=== PATIENT | male | born 1980 | race Caucasian/White ===

== ENCOUNTER 2018-12-12 20:59 | Inpatient (IN) ==
[2018-12-12] MEDS ORDERED: SODIUM CHLORIDE 0.9% 1,000 ML IV STA (23:05)
[2018-12-12] MEDS ORDERED: ONDANSETRON 4 MG/2 ML VIAL IV STA (23:05)
[2018-12-12 23:19] LABS: Basophils # 0.2 10*3/uL (0.0-0.2); Basophils % 0.6 % (0.0-0.8); Eosinophils # 0.1 10*3/uL (0.0-0.87); Eosinophils % 0.5 % (0.00-10.9); Hematocrit 37.4 VOL% (42.0-52.0); Hemoglobin 11.9 GM/DL (14.0-18.0); Immature Granulocytes Absolute 0.25 #; Lymphocytes # 1.6 10*3/uL (1.4-4.0); Mean Corpuscular HGB Conc 31.8 GM/DL (32-36); Mean Corpuscular Hemoglobin 27 PG (27-34); Mean Corpuscular Volume 85.4 FL (87-102); Mean Platelet Volume 8.5 FL (9.6-12.0); Monocytes # 1.6 10*3/uL (0.11-0.8); Monocytes % 6.4 % (1.7-12.7); Neutrophils # 22.1 10*3/uL (1.4-7.4); Neutrophils % 85.5 % (38.7-73.9); Platelet Count 771 T/CUMM (130-400); Red Blood Count 4.38 MC/CUMM (3.8-5.5); Red Cell Distribution Width 13.1 % (9.3-17.3); White Blood Count 25.8 T/CUMM (4-12)
[2018-12-12] MEDS ORDERED: VANCOMYCIN INJ 1,000 MG in SODIUM CHLORIDE 0.9% 250 ML IV STA (23:48)
[2018-12-12] MEDS ORDERED: CEFEPIME 2,000 MG in SODIUM CHLORIDE 0.9% 100 ML IV STA (23:48)
[2018-12-12 23:49] LABS: Alanine Aminotransferase 79 U/L (16-61); Albumin 1.8 G/DL (3.4-5.0); Alkaline Phosphatase 426 U/L (45-117); Aspartate Amino Transferase 76 U/L (0-37); Bilirubin,Total < 0.39 MG/DL (0.2-1.0); Blood Urea Nitrogen 8 MG/DL (7-18); Calcium 8.7 MG/DL (8.5-10.1); Glucose 90 MG/DL (74-106); Osmolality,Calculated 252.2 MOS/KG (273-304); Sodium 127 MMOL/L (136-145); Total Protein 7.9 G/DL (6.4-8.3)
[2018-12-13] MEDS ORDERED: CEFEPIME 1,000 MG VIAL ONE (00:11)
[2018-12-13 00:16] LABS: Band Neutrophils 1 % (0-10); Lymphocytes 1 % (20-55); Segmented Neutrophils 94 % (50-85)
[2018-12-13] MEDS ORDERED: CEFEPIME 2,000 MG VIAL ONE (00:16)
[2018-12-13 00:18] LABS: Platelet Estimate Increased; Total Cells Counted 100
[2018-12-13] MEDS ORDERED: ONDANSETRON 4 MG/2 ML VIAL IV PRN (01:50)
[2018-12-13] MEDS: SODIUM CHLORIDE 0.9% 1,000 ML IV SCH ×2 (02:55→16:57)
[2018-12-13 03:12] LABS: Apearance,Urine CLEAR (Clear); Bilirubin,Urine Negative (Negative); Blood, Urine Negative (Negative); Glucose,Urine (UA) Negative (Negative); Ketones,Urine Negative (Negative); Mucus,Urine Occasional /LPF (Occasional); Nitrite,Urine Negative (Negative); Protein,Urine Negative; RBC,Urine 1 /HPF (0-4); Urine Color Yellow (Yellow); Urine Urobilinogen < 2.0 EU/DL (0.2-1.0); WBC,Urine 1 /HPF (0-6)
[2018-12-13] MEDS ORDERED: PIPERACILLIN/TAZOBACTAM 3,375 MG in SODIUM CHLORIDE 0.9% 100 ML IV SCH (04:00)
[2018-12-13] MEDS: ACETAMINOPHEN 325 MG TABLET PO PRN ×3 (04:15→20:44)
[2018-12-13 07:48] LABS: Basophils # 0.2 10*3/uL (0.0-0.2); Basophils % 0.6 % (0.0-0.8); Eosinophils # 0.1 10*3/uL (0.0-0.87); Eosinophils % 0.3 % (0.00-10.9); Hematocrit 34.3 VOL% (42.0-52.0); Hemoglobin 11.1 GM/DL (14.0-18.0); Immature Granulocytes % 1.1 %; Immature Granulocytes Absolute 0.28 #; Lymphocytes # 1.1 10*3/uL (1.4-4.0); Lymphocytes % 4.5 % (21.2-54.2); Mean Corpuscular HGB Conc 32.4 GM/DL (32-36); Mean Corpuscular Hemoglobin 28 PG (27-34); Mean Corpuscular Volume 86.4 FL (87-102); Mean Platelet Volume 8.7 FL (9.6-12.0); Neutrophils % 85.5 % (38.7-73.9); Platelet Count 639 T/CUMM (130-400); Red Blood Count 3.97 MC/CUMM (3.8-5.5); Red Cell Distribution Width 13.3 % (9.3-17.3); White Blood Count 24.5 T/CUMM (4-12)
[2018-12-13] MEDS: PANTOPRAZOLE 40 MG TABLET PO SCH (08:40)
[2018-12-13] MEDS: LEVOFLOXACIN INJ 750 MG in PREMIX 1 EACH IV SCH (08:40)
[2018-12-13 08:53] LABS: Band Neutrophils 3 % (0-10); Eosinophils 2 % (0-10); Hypochromasia 1+; Lymphocytes 4 % (20-55); Segmented Neutrophils 87 % (50-85); Total Cells Counted 100
[2018-12-13 08:54] LABS: Microcytosis 1+
[2018-12-13 09:06] LABS: HIV Antigen/Antibody Result Nonreactive (Nonreactive)
[2018-12-13] MEDS ORDERED: ALUMINUM/MAGNES/SIMETH MAX STR 30 ML UDCUP PO PRN (09:46)
[2018-12-13] MEDS ORDERED: cefTRIAXone 1,000 MG in SYRINGE 1 EACH IV SCH (10:00)
[2018-12-13] MEDS ORDERED: ALBUTEROL/IPRATROPIUM 3 ML NEB RESP TX SCH (13:00)
[2018-12-13] MEDS: ENOXAPARIN 40 MG/0.4 ML SYRINGE SUBCUT SCH (15:28)
[2018-12-14 05:24] LABS: Basophils # 0.1 10*3/uL (0.0-0.2); Basophils % 0.6 % (0.0-0.8); Eosinophils # 0.1 10*3/uL (0.0-0.87); Eosinophils % 0.6 % (0.00-10.9); Hematocrit 33.7 VOL% (42.0-52.0); Hemoglobin 10.7 GM/DL (14.0-18.0); Immature Granulocytes % 1.1 %; Immature Granulocytes Absolute 0.23 #; Lymphocytes # 1.1 10*3/uL (1.4-4.0); Mean Corpuscular HGB Conc 31.8 GM/DL (32-36); Mean Corpuscular Hemoglobin 28 PG (27-34); Mean Corpuscular Volume 86.9 FL (87-102); Mean Platelet Volume 8.8 FL (9.6-12.0); Monocytes # 1.5 10*3/uL (0.11-0.8); Monocytes % 6.7 % (1.7-12.7); Neutrophils # 18.6 10*3/uL (1.4-7.4); Platelet Count 703 T/CUMM (130-400); Red Blood Count 3.88 MC/CUMM (3.8-5.5); Red Cell Distribution Width 13.2 % (9.3-17.3); White Blood Count 21.6 T/CUMM (4-12)
[2018-12-14 05:53] LABS: Eosinophils 1 % (0-10); Lymphocytes 4 % (20-55); Metamyelocytes 1 %; Platelet Estimate Increased; Polychromasia Slight; Segmented Neutrophils 94 % (50-85); Total Cells Counted 100
[2018-12-14 07:26] LABS: Albumin 1.5 G/DL (3.4-5.0); Bilirubin,Total 1.2 MG/DL (0.2-1.0); Calcium 8.4 MG/DL (8.5-10.1); Osmolality,Calculated 261.5 MOS/KG (273-304); Potassium 3.7 MMOL/L (3.5-5.1); Total Protein 6.2 G/DL (6.4-8.3)
[2018-12-14] MEDS: LEVOFLOXACIN INJ 750 MG in PREMIX 1 EACH IV SCH (09:32)
[2018-12-14] MEDS: PANTOPRAZOLE 40 MG TABLET PO SCH (09:34)
[2018-12-14] MEDS: cefTRIAXone 2,000 MG in SYRINGE 1 EACH IV SCH (09:34)
[2018-12-14] MEDS: BUDESONIDE/FORMOTEROL 160-4.5 INHALER 6 GM INH SCH ×2 (10:29→21:04)
[2018-12-14] MEDS: ENOXAPARIN 40 MG/0.4 ML SYRINGE SUBCUT SCH (14:15)
[2018-12-14] MEDS: SODIUM CHLORIDE 0.9% 1,000 ML IV SCH (14:21)
[2018-12-14] MEDS: ACETAMINOPHEN 325 MG TABLET PO PRN (16:23)
[2018-12-14] MEDS: MAGNESIUM HYDROXIDE SUSP 30 ML UDCUP PO PRN (23:26)
[2018-12-15] MEDS: ACETAMINOPHEN 325 MG TABLET PO PRN ×2 (00:53→05:36)
[2018-12-15] MEDS: MAGNESIUM HYDROXIDE SUSP 30 ML UDCUP PO PRN (05:36)
[2018-12-15] MEDS: LEVOFLOXACIN INJ 750 MG in PREMIX 1 EACH IV SCH (10:05)
[2018-12-15] MEDS: cefTRIAXone 2,000 MG in SYRINGE 1 EACH IV SCH (10:06)
[2018-12-15] MEDS: BUDESONIDE/FORMOTEROL 160-4.5 INHALER 6 GM INH SCH ×2 (10:06→22:39)
[2018-12-15] MEDS: PANTOPRAZOLE 40 MG TABLET PO SCH (10:06)
[2018-12-15] MEDS: LACTOBACILLUS ACIDOPHILUS/BULGARICUS CAPLET PO SCH ×2 (12:32→22:39)
[2018-12-15] MEDS: ENOXAPARIN 40 MG/0.4 ML SYRINGE SUBCUT SCH (14:18)
[2018-12-15] MEDS: SODIUM CHLORIDE 0.9% 1,000 ML IV SCH ×2 (14:24→22:35)
[2018-12-16] MEDS: ACETAMINOPHEN 325 MG TABLET PO PRN ×3 (04:25→22:44)
[2018-12-16 06:03] LABS: Basophils # 0.1 10*3/uL (0.0-0.2); Basophils % 0.5 % (0.0-0.8); Eosinophils % 0.1 % (0.00-10.9); Hematocrit 31.5 VOL% (42.0-52.0); Immature Granulocytes % 0.9 %; Immature Granulocytes Absolute 0.22 #; Lymphocytes # 1.2 10*3/uL (1.4-4.0); Lymphocytes % 4.7 % (21.2-54.2); Mean Corpuscular HGB Conc 31.7 GM/DL (32-36); Mean Corpuscular Hemoglobin 27 PG (27-34); Mean Corpuscular Volume 85.1 FL (87-102); Mean Platelet Volume 9.3 FL (9.6-12.0); Monocytes # 1.6 10*3/uL (0.11-0.8); Monocytes % 6.6 % (1.7-12.7); Neutrophils # 21.3 10*3/uL (1.4-7.4); Neutrophils % 87.2 % (38.7-73.9); Platelet Count 687 T/CUMM (130-400); Red Cell Distribution Width 13.4 % (9.3-17.3); White Blood Count 24.4 T/CUMM (4-12)
[2018-12-16 06:34] LABS: Band Neutrophils 4 % (0-10); Hypochromasia 1+; Lymphocytes 7 % (20-55); Microcytosis Slight; Segmented Neutrophils 81 % (50-85); Total Cells Counted 100
[2018-12-16 06:49] LABS: Calcium 8.4 MG/DL (8.5-10.1); Osmolality,Calculated 257.8 MOS/KG (273-304); Potassium 3.8 MMOL/L (3.5-5.1)
[2018-12-16] MEDS: PANTOPRAZOLE 40 MG TABLET PO SCH (09:07)
[2018-12-16] MEDS: LACTOBACILLUS ACIDOPHILUS/BULGARICUS CAPLET PO SCH ×2 (09:07→22:44)
[2018-12-16] MEDS: ENOXAPARIN 40 MG/0.4 ML SYRINGE SUBCUT SCH ×2 (09:07→09:10)
[2018-12-16] MEDS: LEVOFLOXACIN INJ 750 MG in PREMIX 1 EACH IV SCH (09:07)
[2018-12-16] MEDS: BUDESONIDE/FORMOTEROL 160-4.5 INHALER 6 GM INH SCH ×2 (09:07→22:44)
[2018-12-16] MEDS: cefTRIAXone 2,000 MG in SYRINGE 1 EACH IV SCH (09:15)
[2018-12-16] MEDS ORDERED: VANCOMYCIN INJ 1,250 MG in SODIUM CHLORIDE 0.9% 250 ML IV ONE (09:30)
[2018-12-16] MEDS: VANCOMYCIN INJ 1,000 MG in SODIUM CHLORIDE 0.9% 250 ML IV SCH (18:05)
[2018-12-16] MEDS: SODIUM CHLORIDE 0.9% 1,000 ML IV SCH (18:07)
[2018-12-17] MEDS ORDERED: guaiFENesin/CODEINE 5 ML LIQUID PO STA (00:19)
[2018-12-17] MEDS ORDERED: MORPHINE 4 MG/1 ML VIAL IV ONE (00:23)
[2018-12-17] MEDS: ALBUTEROL/IPRATROPIUM 3 ML NEB RESP TX PRN (01:00)
[2018-12-17] MEDS: VANCOMYCIN INJ 1,000 MG in SODIUM CHLORIDE 0.9% 250 ML IV SCH ×2 (01:55→10:33)
[2018-12-17 05:53] LABS: Basophils # 0.1 10*3/uL (0.0-0.2); Basophils % 0.5 % (0.0-0.8); Eosinophils # 0.1 10*3/uL (0.0-0.87); Eosinophils % 0.5 % (0.00-10.9); Hematocrit 30.4 VOL% (42.0-52.0); Hemoglobin 9.5 GM/DL (14.0-18.0); Immature Granulocytes Absolute 0.21 #; Lymphocytes # 1.2 10*3/uL (1.4-4.0); Lymphocytes % 5.7 % (21.2-54.2); Mean Corpuscular HGB Conc 31.3 GM/DL (32-36); Mean Corpuscular Hemoglobin 27 PG (27-34); Mean Corpuscular Volume 85.9 FL (87-102); Mean Platelet Volume 9.2 FL (9.6-12.0); Monocytes # 1.3 10*3/uL (0.11-0.8); Monocytes % 6.2 % (1.7-12.7); Neutrophils # 18.6 10*3/uL (1.4-7.4); Neutrophils % 86.1 % (38.7-73.9); Platelet Count 708 T/CUMM (130-400); Red Blood Count 3.54 MC/CUMM (3.8-5.5); Red Cell Distribution Width 13.3 % (9.3-17.3); White Blood Count 21.5 T/CUMM (4-12)
[2018-12-17 06:09] LABS: Calcium 7.9 MG/DL (8.5-10.1); Osmolality,Calculated 268.1 MOS/KG (273-304)
[2018-12-17 06:50] LABS: Band Neutrophils 5 % (0-10); Hypochromasia 1+; Lymphocytes 6 % (20-55); Platelet Estimate Increased; Segmented Neutrophils 85 % (50-85); Total Cells Counted 100
[2018-12-17 06:51] LABS: Microcytosis Slight
[2018-12-17] MEDS ORDERED: PROMETHAZINE 25 MG/1 ML VIAL IM ONE (07:00)
[2018-12-17] MEDS ORDERED: MEPERIDINE 50 MG/1 ML VIAL IM ONE (07:00)
[2018-12-17] MEDS ORDERED: GLYCOPYRROLATE 0.4 MG/2 ML VIAL IM ONE (07:00)
[2018-12-17] MEDS ORDERED: MIDAZOLAM 2 MG/2 ML VIAL ONE (07:18)
[2018-12-17] MEDS ORDERED: LIDOCAINE 1% 20 ML VIAL MISC INJ ONE (07:30)
[2018-12-17] MEDS ORDERED: LIDOCAINE 2% 20 ML VIAL RESP TX ONE (07:30)
[2018-12-17] MEDS ORDERED: MIDAZOLAM 2 MG/2 ML VIAL IV ONE (07:30)
[2018-12-17] MEDS ORDERED: LIDOCAINE 2% VISCOUS 100 ML BOTTLE SWISH/SPIT ONE (07:30)
[2018-12-17] MEDS: ENOXAPARIN 40 MG/0.4 ML SYRINGE SUBCUT SCH (08:40)
[2018-12-17] MEDS: cefTRIAXone 2,000 MG in SYRINGE 1 EACH IV SCH (08:40)
[2018-12-17] MEDS: ACETAMINOPHEN 325 MG TABLET PO PRN ×2 (10:13→15:09)
[2018-12-17] MEDS: LACTOBACILLUS ACIDOPHILUS/BULGARICUS CAPLET PO SCH ×2 (10:13→21:43)
[2018-12-17] MEDS: PANTOPRAZOLE 40 MG TABLET PO SCH (10:14)
[2018-12-17] MEDS: BUDESONIDE/FORMOTEROL 160-4.5 INHALER 6 GM INH SCH ×2 (10:14→21:44)
[2018-12-17] MEDS: DEXTROSE 5% IV SCH (14:55)
[2018-12-17] MEDS: AMPHOTERICIN B LIPOSOMAL IV SCH (14:55)
[2018-12-17] MEDS: SODIUM CHLORIDE 0.9% 1,000 ML IV SCH (19:40)
[2018-12-17] MEDS: VANCOMYCIN INJ 1,250 MG in SODIUM CHLORIDE 0.9% 250 ML IV SCH (21:44)
[2018-12-18] MEDS: ACETAMINOPHEN 325 MG TABLET PO PRN ×3 (01:35→21:08)
[2018-12-18 05:08] LABS: Basophils # 0.2 10*3/uL (0.0-0.2); Basophils % 0.7 % (0.0-0.8); Eosinophils # 0.7 10*3/uL (0.0-0.87); Eosinophils % 2.8 % (0.00-10.9); Hematocrit 32.2 VOL% (42.0-52.0); Immature Granulocytes % 1.8 %; Immature Granulocytes Absolute 0.43 #; Lymphocytes # 1.5 10*3/uL (1.4-4.0); Lymphocytes % 6.2 % (21.2-54.2); Mean Corpuscular HGB Conc 31.1 GM/DL (32-36); Mean Corpuscular Hemoglobin 27 PG (27-34); Mean Corpuscular Volume 87.3 FL (87-102); Mean Platelet Volume 8.8 FL (9.6-12.0); Monocytes # 1.2 10*3/uL (0.11-0.8); Monocytes % 5.2 % (1.7-12.7); Neutrophils # 19.5 10*3/uL (1.4-7.4); Neutrophils % 83.3 % (38.7-73.9); Platelet Count 678 T/CUMM (130-400); Red Blood Count 3.69 MC/CUMM (3.8-5.5); Red Cell Distribution Width 13.6 % (9.3-17.3); White Blood Count 23.4 T/CUMM (4-12)
[2018-12-18 05:26] LABS: Calcium 7.9 MG/DL (8.5-10.1); Potassium 4.1 MMOL/L (3.5-5.1)
[2018-12-18 05:35] LABS: Band Neutrophils 2 % (0-10); Eosinophils 3 % (0-10); Hypochromasia 1+; Lymphocytes 3 % (20-55); Microcytosis Slight; Ovalocytes Slight; Platelet Estimate Adequate; Segmented Neutrophils 86 % (50-85); Total Cells Counted 100
[2018-12-18] MEDS: VANCOMYCIN INJ 1,250 MG in SODIUM CHLORIDE 0.9% 250 ML IV SCH ×3 (06:20→21:00)
[2018-12-18] MEDS: ENOXAPARIN 40 MG/0.4 ML SYRINGE SUBCUT SCH ×2 (10:34→10:37)
[2018-12-18] MEDS: PANTOPRAZOLE 40 MG TABLET PO SCH (10:34)
[2018-12-18] MEDS: LACTOBACILLUS ACIDOPHILUS/BULGARICUS CAPLET PO SCH ×2 (10:34→21:00)
[2018-12-18] MEDS: BUDESONIDE/FORMOTEROL 160-4.5 INHALER 6 GM INH SCH ×2 (10:35→21:00)
[2018-12-18] MEDS: cefTRIAXone 2,000 MG in SYRINGE 1 EACH IV SCH (11:05)
[2018-12-18] MEDS ORDERED: ACETAMINOPHEN 500 MG TABLET PO ONE (11:30)
[2018-12-18] MEDS ORDERED: diphenhydrAMINE CAP 50 MG CAPSULE PO ONE (11:30)
[2018-12-18] MEDS: DEXTROSE 5% IV SCH (11:40)
[2018-12-18] MEDS: AMPHOTERICIN B LIPOSOMAL IV SCH (11:40)
[2018-12-18 15:31] LABS: TB2 Ag Minus Result 0 IU/mL
[2018-12-19] MEDS: SODIUM CHLORIDE 0.9% 1,000 ML IV SCH (00:50)
[2018-12-19 05:09] LABS: Basophils # 0.2 10*3/uL (0.0-0.2); Basophils % 0.7 % (0.0-0.8); Eosinophils # 0.5 10*3/uL (0.0-0.87); Eosinophils % 2.2 % (0.00-10.9); Hemoglobin 10.1 GM/DL (14.0-18.0); Immature Granulocytes % 2.2 %; Immature Granulocytes Absolute 0.51 #; Lymphocytes # 1.3 10*3/uL (1.4-4.0); Lymphocytes % 5.7 % (21.2-54.2); Mean Corpuscular HGB Conc 30.6 GM/DL (32-36); Mean Corpuscular Hemoglobin 27 PG (27-34); Mean Corpuscular Volume 87.1 FL (87-102); Monocytes # 1.5 10*3/uL (0.11-0.8); Monocytes % 6.5 % (1.7-12.7); Neutrophils # 19.1 10*3/uL (1.4-7.4); Neutrophils % 82.7 % (38.7-73.9); Platelet Count 724 T/CUMM (130-400); Red Blood Count 3.79 MC/CUMM (3.8-5.5); Red Cell Distribution Width 13.6 % (9.3-17.3); White Blood Count 23.1 T/CUMM (4-12)
[2018-12-19] MEDS: VANCOMYCIN INJ 1,250 MG in SODIUM CHLORIDE 0.9% 250 ML IV SCH ×4 (05:29→21:04)
[2018-12-19 05:36] LABS: Calcium 8.1 MG/DL (8.5-10.1); Osmolality,Calculated 272.8 MOS/KG (273-304); Potassium 3.7 MMOL/L (3.5-5.1)
[2018-12-19 05:39] LABS: Eosinophils 3 % (0-10); Hypochromasia Slight; Lymphocytes 6 % (20-55); Platelet Estimate Increased; Segmented Neutrophils 89 % (50-85); Total Cells Counted 100
[2018-12-19] MEDS ORDERED: diphenhydrAMINE CAP 50 MG CAPSULE PO ONE (08:30)
[2018-12-19] MEDS ORDERED: ACETAMINOPHEN 500 MG TABLET PO ONE (08:30)
[2018-12-19] MEDS: LACTOBACILLUS ACIDOPHILUS/BULGARICUS CAPLET PO SCH ×2 (09:02→21:03)
[2018-12-19] MEDS: BUDESONIDE/FORMOTEROL 160-4.5 INHALER 6 GM INH SCH ×2 (09:03→21:04)
[2018-12-19] MEDS: ENOXAPARIN 40 MG/0.4 ML SYRINGE SUBCUT SCH (09:03)
[2018-12-19] MEDS: PANTOPRAZOLE 40 MG TABLET PO SCH (09:03)
[2018-12-19] MEDS: DEXTROSE 5% IV SCH (10:06)
[2018-12-19] MEDS: AMPHOTERICIN B LIPOSOMAL IV SCH (10:06)
[2018-12-19] MEDS ORDERED: SODIUM CHLORIDE 0.9% 500 ML IV ONE (12:30)
[2018-12-19] MEDS: traZODone 50 MG TABLET PO PRN (21:03)
[2018-12-20] MEDS: VANCOMYCIN INJ 1,250 MG in SODIUM CHLORIDE 0.9% 250 ML IV SCH ×3 (02:36→14:32)
[2018-12-20 05:11] LABS: Basophils # 0.2 10*3/uL (0.0-0.2); Basophils % 0.8 % (0.0-0.8); Eosinophils # 0.5 10*3/uL (0.0-0.87); Eosinophils % 1.9 % (0.00-10.9); Hemoglobin 10.1 GM/DL (14.0-18.0); Immature Granulocytes % 2.6 %; Immature Granulocytes Absolute 0.63 #; Lymphocytes # 1.2 10*3/uL (1.4-4.0); Lymphocytes % 4.8 % (21.2-54.2); Mean Corpuscular HGB Conc 31.6 GM/DL (32-36); Mean Corpuscular Hemoglobin 27 PG (27-34); Mean Corpuscular Volume 86.7 FL (87-102); Mean Platelet Volume 8.8 FL (9.6-12.0); Monocytes # 1.9 10*3/uL (0.11-0.8); Monocytes % 7.7 % (1.7-12.7); Neutrophils # 20.1 10*3/uL (1.4-7.4); Neutrophils % 82.2 % (38.7-73.9); Platelet Count 749 T/CUMM (130-400); Red Blood Count 3.69 MC/CUMM (3.8-5.5); Red Cell Distribution Width 13.6 % (9.3-17.3); White Blood Count 24.5 T/CUMM (4-12)
[2018-12-20 05:32] LABS: Band Neutrophils 1 % (0-10); Eosinophils 3 % (0-10); Lymphocytes 3 % (20-55); Segmented Neutrophils 91 % (50-85); Total Cells Counted 100
[2018-12-20 05:33] LABS: Giant Platelets Few; Hypochromasia 1+; Microcytosis Slight; Platelet Estimate Adequate
[2018-12-20 06:58] LABS: Calcium 8.2 MG/DL (8.5-10.1); Potassium 3.6 MMOL/L (3.5-5.1)
[2018-12-20] MEDS ORDERED: ACETAMINOPHEN 500 MG TABLET PO ONE (08:30)
[2018-12-20] MEDS ORDERED: diphenhydrAMINE CAP 50 MG CAPSULE PO ONE (08:30)
[2018-12-20] MEDS: ENOXAPARIN 40 MG/0.4 ML SYRINGE SUBCUT SCH ×2 (09:44→09:50)
[2018-12-20] MEDS: AMPHOTERICIN B LIPOSOMAL IV SCH (09:45)
[2018-12-20] MEDS: DEXTROSE 5% IV SCH (09:45)
[2018-12-20] MEDS: PANTOPRAZOLE 40 MG TABLET PO SCH (09:45)
[2018-12-20] MEDS: LACTOBACILLUS ACIDOPHILUS/BULGARICUS CAPLET PO SCH ×2 (09:45→20:30)
[2018-12-20] MEDS: BUDESONIDE/FORMOTEROL 160-4.5 INHALER 6 GM INH SCH ×2 (09:45→20:30)
[2018-12-20] MEDS: SODIUM CHLORIDE 0.9% 1,000 ML IV SCH ×2 (09:50→15:49)
[2018-12-20] MEDS ORDERED: POTASSIUM CHLORIDE 20 MEQ TABLET PO ONE (10:00)
[2018-12-20] MEDS ORDERED: SODIUM CHLORIDE 0.9% 500 ML IV ONE (14:30)
[2018-12-20 15:17] LABS: Amorphous Crystals,Urine Occasional /HPF (Few); Apearance,Urine CLOUDY (Clear); Bacteria,Urine Occasional /HPF (Few); Bilirubin,Urine Negative (Negative); Blood, Urine Negative (Negative); Glucose,Urine (UA) Negative (Negative); Ketones,Urine Negative (Negative); Mucus,Urine Occasional /LPF (Occasional); Nitrite,Urine Negative (Negative); Protein,Urine Negative; RBC,Urine 1 /HPF (0-4); Urine Color Yellow (Yellow); Urine Specific Gravity 1.017 (1.001-1.035); Urine Urobilinogen < 2.0 EU/DL (0.2-1.0); WBC,Urine 1 /HPF (0-6)
[2018-12-20] MEDS: traZODone 50 MG TABLET PO PRN (20:33)
[2018-12-21 05:54] LABS: Basophils # 0.2 10*3/uL (0.0-0.2); Basophils % 0.7 % (0.0-0.8); Eosinophils # 0.3 10*3/uL (0.0-0.87); Eosinophils % 1.3 % (0.00-10.9); Hematocrit 31.4 VOL% (42.0-52.0); Hemoglobin 9.6 GM/DL (14.0-18.0); Immature Granulocytes % 3.5 %; Immature Granulocytes Absolute 0.75 #; Lymphocytes # 1.1 10*3/uL (1.4-4.0); Lymphocytes % 5.1 % (21.2-54.2); Mean Corpuscular HGB Conc 30.6 GM/DL (32-36); Mean Corpuscular Hemoglobin 27 PG (27-34); Mean Corpuscular Volume 86.7 FL (87-102); Mean Platelet Volume 8.7 FL (9.6-12.0); Monocytes # 1.8 10*3/uL (0.11-0.8); Monocytes % 8.4 % (1.7-12.7); Neutrophils # 17.3 10*3/uL (1.4-7.4); Platelet Count 806 T/CUMM (130-400); Red Blood Count 3.62 MC/CUMM (3.8-5.5); Red Cell Distribution Width 13.8 % (9.3-17.3); White Blood Count 21.4 T/CUMM (4-12)
[2018-12-21 06:12] LABS: Calcium 8.3 MG/DL (8.5-10.1); Osmolality,Calculated 271.1 MOS/KG (273-304)
[2018-12-21 06:24] LABS: Band Neutrophils 3 % (0-10); Eosinophils 1 % (0-10); Lymphocytes 2 % (20-55); Segmented Neutrophils 89 % (50-85); Total Cells Counted 100
[2018-12-21 06:25] LABS: Hypochromasia 1+; Microcytosis 1+
[2018-12-21] MEDS ORDERED: VANCOMYCIN INJ 1,250 MG in SODIUM CHLORIDE 0.9% 250 ML IV ONE (09:00)
[2018-12-21] MEDS: ALBUTEROL/IPRATROPIUM 3 ML NEB RESP TX PRN ×2 (09:03→14:47)
[2018-12-21] MEDS: BUDESONIDE/FORMOTEROL 160-4.5 INHALER 6 GM INH SCH ×2 (09:04→21:01)
[2018-12-21] MEDS: ENOXAPARIN 40 MG/0.4 ML SYRINGE SUBCUT SCH (09:08)
[2018-12-21] MEDS: LACTOBACILLUS ACIDOPHILUS/BULGARICUS CAPLET PO SCH ×2 (09:08→21:01)
[2018-12-21] MEDS: PANTOPRAZOLE 40 MG TABLET PO SCH (09:09)
[2018-12-21] MEDS: AMPHOTERICIN B LIPOSOMAL IV SCH (10:31)
[2018-12-21] MEDS: DEXTROSE 5% IV SCH (10:31)
[2018-12-21 12:37] LABS: Troponin I 0.023 NG/ML (0.00-0.045)
[2018-12-21] MEDS: SODIUM CHLORIDE 0.9% 1,000 ML IV SCH (13:49)
[2018-12-21] MEDS: traZODone 50 MG TABLET PO PRN (21:02)
[2018-12-22] MEDS: ACETAMINOPHEN 325 MG TABLET PO PRN (01:41)
[2018-12-22 06:26] LABS: Calcium 8.6 MG/DL (8.5-10.1); Osmolality,Calculated 266.2 MOS/KG (273-304); Potassium 4.4 MMOL/L (3.5-5.1)
[2018-12-22] MEDS: SODIUM CHLORIDE 0.9% 1,000 ML IV SCH (10:00)
[2018-12-22] MEDS: BUDESONIDE/FORMOTEROL 160-4.5 INHALER 6 GM INH SCH ×2 (10:01→21:41)
[2018-12-22] MEDS: PANTOPRAZOLE 40 MG TABLET PO SCH (10:01)
[2018-12-22] MEDS: DEXTROSE 5% IV SCH (10:01)
[2018-12-22] MEDS: AMPHOTERICIN B LIPOSOMAL IV SCH (10:01)
[2018-12-22] MEDS: LACTOBACILLUS ACIDOPHILUS/BULGARICUS CAPLET PO SCH ×2 (10:02→21:40)
[2018-12-22] MEDS: ENOXAPARIN 40 MG/0.4 ML SYRINGE SUBCUT SCH (10:03)
[2018-12-22] MEDS: VANCOMYCIN INJ 1,250 MG in SODIUM CHLORIDE 0.9% 250 ML IV SCH (12:23)
[2018-12-22] MEDS: traZODone 50 MG TABLET PO PRN (21:41)
[2018-12-23] MEDS: VANCOMYCIN INJ 1,250 MG in SODIUM CHLORIDE 0.9% 250 ML IV SCH (00:47)
[2018-12-23 05:24] LABS: Basophils # 0.2 10*3/uL (0.0-0.2); Basophils % 0.7 % (0.0-0.8); Eosinophils # 0.4 10*3/uL (0.0-0.87); Eosinophils % 1.6 % (0.00-10.9); Hematocrit 27.8 VOL% (42.0-52.0); Hemoglobin 8.4 GM/DL (14.0-18.0); Immature Granulocytes % 4.3 %; Immature Granulocytes Absolute 0.95 #; Lymphocytes # 1.2 10*3/uL (1.4-4.0); Lymphocytes % 5.3 % (21.2-54.2); Mean Corpuscular HGB Conc 30.2 GM/DL (32-36); Mean Corpuscular Hemoglobin 26 PG (27-34); Mean Corpuscular Volume 86.3 FL (87-102); Mean Platelet Volume 8.4 FL (9.6-12.0); Monocytes # 2.2 10*3/uL (0.11-0.8); Monocytes % 9.8 % (1.7-12.7); Neutrophils # 17.1 10*3/uL (1.4-7.4); Neutrophils % 78.3 % (38.7-73.9); Platelet Count 719 T/CUMM (130-400); Red Blood Count 3.22 MC/CUMM (3.8-5.5); White Blood Count 21.9 T/CUMM (4-12)
[2018-12-23 05:43] LABS: Calcium 8.5 MG/DL (8.5-10.1); Osmolality,Calculated 273.8 MOS/KG (273-304)
[2018-12-23 05:45] LABS: Calcium 8.2 MG/DL (8.5-10.1); Eosinophils 1 % (0-10); Lymphocytes 4 % (20-55); Metamyelocytes 1 %; Osmolality,Calculated 275.7 MOS/KG (273-304); Platelet Estimate Increased; Polychromasia Few; Segmented Neutrophils 90 % (50-85); Total Cells Counted 100
[2018-12-23] MEDS: LACTOBACILLUS ACIDOPHILUS/BULGARICUS CAPLET PO SCH ×2 (08:43→21:03)
[2018-12-23] MEDS: BUDESONIDE/FORMOTEROL 160-4.5 INHALER 6 GM INH SCH ×2 (08:44→21:03)
[2018-12-23] MEDS: PANTOPRAZOLE 40 MG TABLET PO SCH (08:44)
[2018-12-23] MEDS: ENOXAPARIN 40 MG/0.4 ML SYRINGE SUBCUT SCH (08:44)
[2018-12-23] MEDS ORDERED: SODIUM CHLORIDE 0.9% 1,000 ML IV SCH (09:33)
[2018-12-23] MEDS: AMPHOTERICIN B LIPOSOMAL IV SCH (09:49)
[2018-12-23] MEDS: DEXTROSE 5% IV SCH (09:49)
[2018-12-23] MEDS: SODIUM CHLORIDE 0.9% 1,000 ML IV SCH ×2 (09:51→13:08)
[2018-12-23] MEDS ORDERED: FUROSEMIDE 40 MG/4 ML VIAL IV ONE (10:30)
[2018-12-24] MEDS: SODIUM CHLORIDE 0.9% 1,000 ML IV SCH ×2 (02:30→17:27)
[2018-12-24 04:42] LABS: Basophils # 0.2 10*3/uL (0.0-0.2); Basophils % 0.8 % (0.0-0.8); Eosinophils # 0.4 10*3/uL (0.0-0.87); Eosinophils % 1.8 % (0.00-10.9); Hematocrit 28.2 VOL% (42.0-52.0); Hemoglobin 8.7 GM/DL (14.0-18.0); Immature Granulocytes % 4.1 %; Immature Granulocytes Absolute 0.87 #; Lymphocytes # 1.5 10*3/uL (1.4-4.0); Lymphocytes % 6.8 % (21.2-54.2); Mean Corpuscular HGB Conc 30.9 GM/DL (32-36); Mean Corpuscular Hemoglobin 27 PG (27-34); Mean Platelet Volume 8.4 FL (9.6-12.0); Monocytes # 2.3 10*3/uL (0.11-0.8); Monocytes % 10.6 % (1.7-12.7); Neutrophils # 16.3 10*3/uL (1.4-7.4); Neutrophils % 75.9 % (38.7-73.9); Platelet Count 760 T/CUMM (130-400); Red Blood Count 3.24 MC/CUMM (3.8-5.5); Red Cell Distribution Width 14.1 % (9.3-17.3); White Blood Count 21.5 T/CUMM (4-12)
[2018-12-24 05:00] LABS: Calcium 8.6 MG/DL (8.5-10.1); Osmolality,Calculated 276.7 MOS/KG (273-304); Potassium 3.7 MMOL/L (3.5-5.1)
[2018-12-24 05:03] LABS: Total Cells Counted 100
[2018-12-24 05:04] LABS: Band Neutrophils 3 % (0-10); Eosinophils 2 % (0-10); Lymphocytes 6 % (20-55); Platelet Estimate Increased; Segmented Neutrophils 78 % (50-85)
[2018-12-24] MEDS: LACTOBACILLUS ACIDOPHILUS/BULGARICUS CAPLET PO SCH ×2 (08:40→20:49)
[2018-12-24] MEDS: PANTOPRAZOLE 40 MG TABLET PO SCH (08:40)
[2018-12-24] MEDS: ENOXAPARIN 40 MG/0.4 ML SYRINGE SUBCUT SCH (08:40)
[2018-12-24] MEDS: BUDESONIDE/FORMOTEROL 160-4.5 INHALER 6 GM INH SCH ×2 (08:42→20:49)
[2018-12-24] MEDS: DEXTROSE 5% IV SCH (09:56)
[2018-12-24] MEDS: AMPHOTERICIN B LIPOSOMAL IV SCH (09:56)
[2018-12-25 06:01] LABS: Basophils # 0.2 10*3/uL (0.0-0.2); Basophils % 1.1 % (0.0-0.8); Eosinophils # 0.4 10*3/uL (0.0-0.87); Eosinophils % 2.5 % (0.00-10.9); Hematocrit 29.6 VOL% (42.0-52.0); Hemoglobin 9.1 GM/DL (14.0-18.0); Immature Granulocytes % 4.1 %; Immature Granulocytes Absolute 0.65 #; Lymphocytes # 1.4 10*3/uL (1.4-4.0); Lymphocytes % 8.6 % (21.2-54.2); Mean Corpuscular HGB Conc 30.7 GM/DL (32-36); Mean Corpuscular Hemoglobin 27 PG (27-34); Mean Corpuscular Volume 87.1 FL (87-102); Mean Platelet Volume 8.4 FL (9.6-12.0); Monocytes # 1.7 10*3/uL (0.11-0.8); Monocytes % 10.8 % (1.7-12.7); Neutrophils # 11.7 10*3/uL (1.4-7.4); Neutrophils % 72.9 % (38.7-73.9); Platelet Count 748 T/CUMM (130-400); Red Cell Distribution Width 14.1 % (9.3-17.3)
[2018-12-25 06:23] LABS: Eosinophils 2 % (0-10); Hypochromasia 1+; Lymphocytes 9 % (20-55); Platelet Estimate Increased; Segmented Neutrophils 82 % (50-85); Total Cells Counted 100
[2018-12-25 06:24] LABS: Calcium 8.7 MG/DL (8.5-10.1); Osmolality,Calculated 280.4 MOS/KG (273-304); Potassium 4.3 MMOL/L (3.5-5.1)
[2018-12-25] MEDS: LACTOBACILLUS ACIDOPHILUS/BULGARICUS CAPLET PO SCH (09:11)
[2018-12-25] MEDS: PANTOPRAZOLE 40 MG TABLET PO SCH (09:11)
[2018-12-25] MEDS: SODIUM CHLORIDE 0.9% 1,000 ML IV SCH (09:12)
[2018-12-25] MEDS: BUDESONIDE/FORMOTEROL 160-4.5 INHALER 6 GM INH SCH (09:12)
[2018-12-25] MEDS: ENOXAPARIN 40 MG/0.4 ML SYRINGE SUBCUT SCH (09:54)
[2018-12-25] MEDS: DEXTROSE 5% IV SCH (11:01)
[2018-12-25] MEDS: AMPHOTERICIN B LIPOSOMAL IV SCH (11:01)
[2018-12-25 11:57] VITALS: BP 125/77
[2018-12-26] MEDS ORDERED: ITRACONAZOLE 100 MG CAPSULE PO SCH (09:00)
== END 2018-12-25 13:47 | disposition home or self-care (01) | DRG 853 ==
LOC: N.ED 20:59 → SUATTDRO 12-13 01:50 → N.EDINP 12-13 01:50 → N.CC 12-13 02:13 → N.2E 12-13 18:17
PROVIDERS: ADMIT Family Medicine; ATTEND Internal Medicine
PROC: BRONCHB (2018-12-17 07:20)

== ENCOUNTER 2019-01-16 18:07 | Inpatient (IN) ==
[2019-01-16] MEDS ORDERED: ADENOSINE 6 MG/2 ML VIAL ONE (18:22)
[2019-01-16] MEDS ORDERED: ADENOSINE 6 MG/2 ML VIAL IV STA (18:28)
[2019-01-16] MEDS ORDERED: ASPIRIN 325 MG TABLET PO STA (18:31)
[2019-01-16] MEDS ORDERED: SODIUM CHLORIDE 0.9% 1,000 ML IV STA (18:31)
[2019-01-16 18:39] LABS: Basophils # 0.2 10*3/uL (0.0-0.2); Basophils % 1.7 % (0.0-0.8); Eosinophils # 0.3 10*3/uL (0.0-0.87); Eosinophils % 2.2 % (0.00-10.9); Hemoglobin 10.5 GM/DL (14.0-18.0); Immature Granulocytes % 0.3 %; Immature Granulocytes Absolute 0.04 #; Lymphocytes % 24.9 % (21.2-54.2); Mean Corpuscular HGB Conc 30.9 GM/DL (32-36); Mean Corpuscular Hemoglobin 27 PG (27-34); Mean Corpuscular Volume 88.3 FL (87-102); Mean Platelet Volume 9.3 FL (9.6-12.0); Monocytes # 1.2 10*3/uL (0.11-0.8); Monocytes % 9.8 % (1.7-12.7); Neutrophils # 7.4 10*3/uL (1.4-7.4); Neutrophils % 61.1 % (38.7-73.9); Platelet Count 402 T/CUMM (130-400); Red Blood Count 3.85 MC/CUMM (3.8-5.5); Red Cell Distribution Width 16.8 % (9.3-17.3); White Blood Count 12.1 T/CUMM (4-12)
[2019-01-16 18:48] LABS: INR 0.9; PT Patient Result 10.3 SECS
[2019-01-16] MEDS ORDERED: METOPROLOL TARTRATE 5 MG/5 ML VIAL IV ONE (18:54)
[2019-01-16 18:58] LABS: Alanine Aminotransferase 22 U/L (16-61); Albumin 3.7 G/DL (3.4-5.0); Alkaline Phosphatase 153 U/L (45-117); Aspartate Amino Transferase 22 U/L (0-37); Bilirubin,Total < 0.39 MG/DL (0.2-1.0); Blood Urea Nitrogen 13 MG/DL (7-18); Calcium 9.7 MG/DL (8.5-10.1); Glucose 86 MG/DL (74-106); Osmolality,Calculated 275.5 MOS/KG (273-304); Sodium 139 MMOL/L (136-145); Total Protein 7.9 G/DL (6.4-8.3)
[2019-01-16] MEDS ORDERED: METOPROLOL TARTRATE 5 MG/5 ML VIAL IV STA (18:58)
[2019-01-16 19:09] LABS: Apearance,Urine CLEAR (Clear); Bilirubin,Urine Negative (Negative); Blood, Urine Negative (Negative); Glucose,Urine (UA) Negative (Negative); Ketones,Urine Negative (Negative); Mucus,Urine Occasional /LPF (Occasional); Nitrite,Urine Negative (Negative); Protein,Urine Negative; RBC,Urine 1 /HPF (0-4); Urine Color Colorless (Yellow); Urine Specific Gravity 1.003 (1.001-1.035); Urine Urobilinogen < 2.0 EU/DL (0.2-1.0); WBC,Urine 1 /HPF (0-6)
[2019-01-16 20:12] LABS: Barbiturates Screen,Urine Negative (Negative); Benzodiazepines Screen,Urine Negative (Negative); Cannabinoid Screen,Urine Negative (Negative); Opiate Screen,Urine Negative (Negative); Phencyclidine Screen,Urine Negative (Negative)
[2019-01-16] MEDS ORDERED: diphenhydrAMINE CAP 25 MG CAPSULE PO PRN (20:52)
[2019-01-16] MEDS ORDERED: NICOTINE 21 MG/24 HR PATCH TRANSDERM PRN (20:52)
[2019-01-16] MEDS ORDERED: ACETAMINOPHEN 325 MG TABLET PO PRN (20:52)
[2019-01-16] MEDS ORDERED: PROMETHAZINE 25 MG/1 ML VIAL IM PRN (20:52)
[2019-01-16] MEDS ORDERED: MORPHINE 4 MG/1 ML VIAL IV PRN (20:52)
[2019-01-16] MEDS ORDERED: ZALEPLON 5 MG CAPSULE PO PRN (20:52)
[2019-01-16] MEDS ORDERED: ONDANSETRON 4 MG/2 ML VIAL IV PRN (20:52)
[2019-01-16] MEDS ORDERED: BISACODYL 5 MG TABLET PO PRN (20:52)
[2019-01-16] MEDS ORDERED: ALBUTEROL/IPRATROPIUM 3 ML NEB RESP TX PRN (20:57)
[2019-01-16] MEDS ORDERED: NON-FORMULARY MEDICATION (Albuterol Inhaler 2 PUFF) INH PRN (20:57)
[2019-01-16] MEDS ORDERED: NON-FORMULARY MEDICATION (Budesonide/Formoterol 160-4.5 [Symbicort 160-4.5] 2 PUFF) INH SCH (21:00)
[2019-01-16] MEDS ORDERED: ADENOSINE 6 MG/2 ML VIAL IV PRN (21:10)
[2019-01-16 21:45] LABS: Thyroid Stimulating Hormone 2.93 uIU/ml (0.358-3.74)
[2019-01-16] MEDS ORDERED: INFLUENZA VIRUS VACCINE 0.5 ML SYRINGE IM ONE (23:07)
[2019-01-17 01:04] LABS: Basophils # 0.1 10*3/uL (0.0-0.2); Basophils % 1.6 % (0.0-0.8); Eosinophils # 0.3 10*3/uL (0.0-0.87); Eosinophils % 3.2 % (0.00-10.9); Hematocrit 30.3 VOL% (42.0-52.0); Hemoglobin 9.2 GM/DL (14.0-18.0); Immature Granulocytes % 0.3 %; Immature Granulocytes Absolute 0.03 #; Lymphocytes # 2.1 10*3/uL (1.4-4.0); Lymphocytes % 23.5 % (21.2-54.2); Mean Corpuscular HGB Conc 30.4 GM/DL (32-36); Mean Corpuscular Hemoglobin 27 PG (27-34); Mean Corpuscular Volume 89.6 FL (87-102); Mean Platelet Volume 9.3 FL (9.6-12.0); Monocytes % 10.8 % (1.7-12.7); Neutrophils # 5.4 10*3/uL (1.4-7.4); Neutrophils % 60.6 % (38.7-73.9); Platelet Count 312 T/CUMM (130-400); Red Blood Count 3.38 MC/CUMM (3.8-5.5); Red Cell Distribution Width 16.9 % (9.3-17.3); White Blood Count 8.9 T/CUMM (4-12)
[2019-01-17 01:24] LABS: Albumin 3.1 G/DL (3.4-5.0); Bilirubin,Total 0.4 MG/DL (0.2-1.0); Calcium 8.4 MG/DL (8.5-10.1); Osmolality,Calculated 282.3 MOS/KG (273-304); Total Protein 6.9 G/DL (6.4-8.3)
[2019-01-17] MEDS: ITRACONAZOLE 100 MG CAPSULE PO SCH ×2 (01:28→09:32)
[2019-01-17] MEDS ORDERED: PANTOPRAZOLE 40 MG TABLET PO SCH (09:00)
[2019-01-17] MEDS ORDERED: ENOXAPARIN 40 MG/0.4 ML SYRINGE SUBCUT SCH (09:00)
[2019-01-17] MEDS ORDERED: ASPIRIN EC 325 MG TABLET PO SCH (09:00)
[2019-01-17 09:06] LABS: Risk Ratio 1.71; VLDL CHOLESTEROL 24.4 MG/DL
[2019-01-17] MEDS ORDERED: MAGNESIUM SULF RIDER 2 GM in PREMIX 1 EACH IV ONE (11:52)
[2019-01-17] MEDS ORDERED: METOPROLOL SUCCINATE XL 50 MG TABLET PO SCH (12:00)
[2019-01-17] MEDS ORDERED: ASCORBIC ACID 500 MG TABLET PO SCH (12:00)
[2019-01-17 12:10] VITALS: BP 132/80
[2019-01-17] MEDS ORDERED: MAGNESIUM CHLORIDE 64 MG TABLET PO SCH (21:00)
== END 2019-01-17 17:20 | disposition home or self-care (01) | DRG 309 ==
LOC: N.ED 18:07 → N.EDINP 20:53 → N.TELES 22:04
PROVIDERS: ADMIT Internal Medicine; ATTEND Internal Medicine